=== PATIENT | female | born 1985 | race Two or more races ===

== ENCOUNTER 2017-05-03 12:26 | Emergency (ER) | payer OTHER ==
[2017-05-03] MEDS ORDERED: KETOROLAC 30 MG/ML 1 ML VIAL IM STA (13:14)
[2017-05-03] MEDS ORDERED: MORPHINE SULFATE 4 MG/ML SYRINGE IM STA (13:17)
--- NOTE | 2017-05-03 13:24 | ED ---
General Adult HPI - General Chief complaint: Extremity Problem,Nontraumatic Stated complaint: Infection in Foot Time Seen by Provider: 05/03/17 13:08 Source: patient Mode of arrival: ambulatory Limitations: no limitations - History of Present Illness Initial comments: Patient is a 31yo female presenting with right big toe pain. Onset 3 days ago. Patient has been trying Vicodin without relief. Patient states is worse with movement and walking. Better with rest and elevation. Patient denies prior history of gout, arthritis. She denies fever or chills. She does admit to alcohol use yesterday drinking beer. Patient denies trauma. She has been wearing sandals for the past several days. - Related Data Home Medications Medication Instructions Recorded Confirmed Cyclobenzaprine [Flexeril] 10 mg PO DAILY PRN 05/03/17 05/03/17 Gabapentin 800 mg PO DAILY 05/03/17 05/03/17 Previous Rx's Medication Instructions Recorded Ibuprofen [Motrin] 600 mg PO Q6HR PRN #30 tab 05/03/17 Allergies Allergy/AdvReac Type Severity Reaction Status Date / Time hydrocortisone Allergy Unknown Verified 05/03/17 13:31 Review of Systems ROS Statement: Those systems with pertinent positive or pertinent negative responses have been documented in the HPI. Constitutional: No fever and no chills. HENT: No congestion, no rhinorrhea and no sore throat. Eyes: No discharge and no redness. Respiratory: No cough and no shortness of breath. Cardiovascular: No chest pain and no palpitations. Gastrointestinal: No nausea, no vomiting, no abdominal pain and no diarrhea. Genitourinary: No dysuria and no hematuria. Musculoskeletal: No back pain and +arthralgias. Skin: No pallor and no rash. Neurological: No dizziness and No headaches. ROS Other: All systems not noted in ROS Statement are negative. 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 No distress. Head: Normocephalic and atraumatic. Eyes: Conjunctivae and EOM are normal. Right eye exhibits no discharge. Left eye exhibits no discharge. No scleral icterus. Neck: Normal range of motion. Neck supple. Cardiovascular: Normal rate and regular rhythm. No murmur heard. Pulmonary/Chest: Effort normal and breath sounds normal. No respiratory distress. No wheezes. Abdominal: Soft. No distension. There is no tenderness. There is no rebound and no guarding. Musculoskeletal: Exquisitely tender swollen right 1st MTP. Distal cap refill intact. Motor is intact but painful. Sensation intact. Neurological: Patient alert and oriented to person, place, and time. Skin: Skin is warm and dry. Not diaphoretic. Nursing notes and vitals reviewed. Limitations: no limitations Course Vital Signs 05/03/17 05/03/17 12:40 15:14 Temperature 98.0 F 97.8 F Pulse Rate 83 72 Respiratory 20 18 Rate Blood Pressure 112/61 95/59 O2 Sat by Pulse 98 100 Oximetry - Reevaluation(s) Reevaluation #1: 05/03/17 16:03 Patient with improvement of symptoms after medication. She is able to walk with much more relief now. Medical Decision Making - Medical Decision Making Patient's a 31-year-old female presenting with 3 days of right podagra. X-ray unremarkable. Patient had improvement in pain with morphine and Toradol. Prior to discharge, patient was resting comfortably in bed. Course of stay improved. Denies pain. Discussed physical exam and diagnostic tests with patient. Questions answered and patient is agreeable to discharge with close follow up with Primary Care Physician. Instructed to return to Emergency Department if symptoms worsen. Disposition Clinical Impression: Gout Disposition: HOME SELF-CARE Condition: Good Instructions: Gout (ED) Prescriptions: Ibuprofen [Motrin] 600 mg PO Q6HR PRN #30 tab PRN Reason: Severe Pain Referrals: Casper Ramirez MD [Primary Care Provider] - 1-2 days
--- NOTE | 2017-05-03 14:53 | XR ---
EXAMINATION TYPE: XR toes RT DATE OF EXAM: 05/03/2017 COMPARISON: NONE HISTORY: Pain swelling TECHNIQUE: 3 views right great toe FINDINGS: No acute fractures evident. Joint spaces preserved. Soft tissues are normal. IMPRESSION: 1. Normal three-view great toe
[2017-05-03 15:15] VITALS: RESP 18; TEMP 97.8
[2017-05-03 16:09] VITALS: BP 114/64; PULSE 87
== END 2017-05-03 16:09 | disposition home or self-care (01) ==
LOC: EC 12:26
DX: M10.9 Gout, unspecified (principal); F17.200 Nicotine dependence, unspecified, uncomplicated; Z79.899 Other long term (current) drug therapy; Z88.8 Allergy status to other drugs, medicaments and biological substances
CPT/HCPCS: 73660; 99283; 96372 ×2; J2270; J1885

== ENCOUNTER 2019-08-15 09:54 | Emergency (ER) | payer OTHER ==
[2019-08-15 10:20] VITALS: TEMP 98.2
[2019-08-15] MEDS ORDERED: IPRATROPIUM-ALBUTEROL 3 ML NEB INHALATION STA (10:37)
--- NOTE | 2019-08-15 10:57 | XR ---
EXAMINATION TYPE: XR chest 2V DATE OF EXAM: 08/15/2019 COMPARISON: NONE HISTORY: Cough and congestion TECHNIQUE: Frontal and lateral views of the chest are obtained. FINDINGS: There is no focal air space opacity, pleural effusion, or pneumothorax seen. There is mil d peribronchial cuffing on the lateral view. The cardiac silhouette size is within normal limits. T he osseous structures are intact. IMPRESSION: Mild peribronchial cuffing can be seen in reactive or infectious airway disease. Conside r bronchitis.
--- NOTE | 2019-08-15 11:12 | ED ---
URI HPI - General Chief Complaint: Upper Respiratory Infection Stated Complaint: congestion Time Seen by Provider: 08/15/19 10:32 Source: patient, RN notes reviewed Mode of arrival: ambulatory Limitations: no limitations - History of Present Illness Initial Comments: 33-year-old female presents emergency Department chief complaint of cough congestion. Patient states that she has been sick for last 2 weeks going on the third week of been sick. She states her cough is productive of phlegm she is a daily smoker denies any history of asthma COPD. Patient states it initially started in her sinuses. Patient denies any sick contacts denies any ear pain. She does have mild sore throat she's tried multiple [id number] cough and cold medications with no relief. - Related Data Home Medications Medication Instructions Recorded Confirmed Phenol [Chloraseptic] 2 - 3 spray MUCOUS MEM Q2H PRN 08/15/19 08/15/19 Previous Rx's Medication Instructions Recorded Amoxicillin/Potassium Clav 1 tab PO Q12HR #20 tab 08/15/19 [Augmentin 875-125 Tablet] predniSONE 50 mg PO DAILY #5 tab 08/15/19 Allergies Allergy/AdvReac Type Severity Reaction Status Date / Time hydrocortisone Allergy Swelling Verified 08/15/19 10:40 Review of Systems ROS Statement: Those systems with pertinent positive or pertinent negative responses have been documented in the HPI. ROS Other: All systems not noted in ROS Statement are negative. 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 Absent: scleral icterus, conjunctival injection, periorbital swelling ENT exam: Present: mucous membranes moist, TM's normal bilaterally, normal external ear exam. Absent: normal exam, normal oropharynx (Postnasal drainage) Neck exam: Present: normal inspection, full ROM. Absent: tenderness, meningismus, lymphadenopathy Respiratory exam: Present: wheezes (Mild), rhonchi. Absent: normal lung sounds bilaterally, respiratory distress, rales, stridor Cardiovascular Exam: Present: regular rate, normal rhythm, normal heart sounds. Absent: systolic murmur, diastolic murmur, rubs, gallop, clicks Course Vital Signs 08/15/19 08/15/19 10:16 10:48 Temperature 98.2 F Pulse Rate 66 Respiratory 20 20 Rate Blood Pressure 94/59 O2 Sat by Pulse 99 Oximetry - Reevaluation(s) Reevaluation #1: 08/15/19 11:08 I counseled the patient for smoking cessation for greater than 3 minutes Medical Decision Making - Medical Decision Making 33-year-old male present emergency department with chief complaint of cough congestion. Chest x-ray shows reactive airways versus infectious reactive airway, consider bronchitis. Patient will be treated accordingly. Patient was started on antibiotics for acute sinusitis, bronchitis. Patient will follow-up with her PCP and return for any worsening symptoms. Disposition Clinical Impression: Bronchitis, Sinusitis Disposition: HOME SELF-CARE Condition: Stable Instructions (If sedation given, give patient instructions): Acute Bronchitis (ED) Additional Instructions: Please return to the Emergency Department if symptoms worsen or any other concerns. Prescriptions: Amoxicillin/Potassium Clav [Augmentin 875-125 Tablet] 1 tab PO Q12HR #20 tab predniSONE 50 mg PO DAILY #5 tab Is patient prescribed a controlled substance at d/c from ED?: No Referrals: None,Stated [Primary Care Provider] - 1-2 days Time of Disposition: 11:11
[2019-08-15 11:55] VITALS: BP 109/74; PULSE 54; RESP 18
== END 2019-08-15 12:02 | disposition home or self-care (01) ==
LOC: EC 09:54
DX: J40 Bronchitis, not specified as acute or chronic (principal); J01.90 Acute sinusitis, unspecified; F17.200 Nicotine dependence, unspecified, uncomplicated; Z71.6 Tobacco abuse counseling; Z90.49 Acquired absence of other specified parts of digestive tract; Z88.8 Allergy status to other drugs, medicaments and biological substances
CPT/HCPCS: 71046; 94640; 99283; 99406

== ENCOUNTER → 2022-04-01 | Outpatient (CLI) | payer OTHER ==
--- NOTE | 2022-04-01 14:59 | US ---
EXAMINATION TYPE: US abdomen complete DATE OF EXAM: 04/01/2022 COMPARISON: NONE CLINICAL HISTORY: 36-year-old female R14.0 ABDOMINAL DISTENSION (GASEOUS). TECHNIQUE: Multiple sonographic images of the thyroid gland are obtained. FINDINGS: EXAM MEASUREMENTS: Liver Length: 15.1 cm CBD: .7 cm Spleen: 9.9 cm Right Kidney: 10.4 x 3.5 x 4.1 cm Left Kidney: 10.3 x 5.4 x 3.7 cm Pancreas: wnl Liver: wnl Gallbladder: Surgically absent CBD: 1.2 cm stone visualized in the mid bile duct. Spleen: wnl Right Kidney: wnl Left Kidney: wnl Upper IVC: wnl Abd Aorta: wnl IMPRESSION: 1. There appears to be a 1.2 cm shadowing stone projecting at the mid bile duct. The gallbladder is s urgically absent. Correlate with alkaline phosphatase and bilirubin levels. 2. Otherwise, no specific abnormality seen.
--- NOTE | 2022-04-01 15:01 | US ---
EXAMINATION TYPE: US pelvic complete DATE OF EXAM: 04/01/2022 COMPARISON: NONE CLINICAL HISTORY: 36-year-old female R14.0 ABDOMINAL DISTENSION (GASEOUS). TECHNIQUE: Transabdominal (TA). FINDINGS: EXAM MEASUREMENTS: Uterus: 8.8 x 3.7 x 5.0 cm Endometrial Stripe: .8 cm Right Ovary: 2.4 x 1.6 x 1.5 cm Left Ovary: 2.6 x 1.0 x 2.5 cm 1. Uterus: Anteverted. Large 1.7 cm cervical nabothian cyst. 2. Endometrium: wnl 3. Right Ovary: wnl 4. Left Ovary: wnl 5. Bilateral Adnexa: wnl 6. Posterior cul-de-sac: wnl IMPRESSION: Incidental 1.7 cm cervical nabothian cyst. Otherwise, unremarkable transabdominal sonographic examina tion of the pelvis.
== END | disposition home or self-care (01) ==
LOC: RADUSWWP 06:52
PROVIDERS: ATTEND Family Medicine
DX: N88.8 Other specified noninflammatory disorders of cervix uteri (principal); K80.50 Calculus of bile duct without cholangitis or cholecystitis without obstruction; Z90.49 Acquired absence of other specified parts of digestive tract
CPT/HCPCS: 76700; 76856

== ENCOUNTER → 2022-09-10 | Outpatient (CLI) | payer OTHER ==
--- NOTE | 2022-09-10 14:52 | US ---
EXAMINATION TYPE: US thyroid st tissue head/neck DATE OF EXAM: 09/10/2022 COMPARISON: NONE CLINICAL HISTORY: R10.9 Unspecified abdominal pain. abn labs GLAND SIZE: Right Lobe: 3.2 x 1.4 x 1.3 cm Overall Parenchyma: heterogenous Left Lobe: 3.6 x 1.2 x 1.2 cm Overall Parenchyma: heterogeneous Isthmus Thickness: 0.3 cm NODULES RIGHT: # of nodules measured on right: 0 LEFT: # of nodules measured on left: 0 ISTHMUS: # of nodules measured in the isthmus: 0 Bilateral neck scanned, no evidence of lymphadenopathy. IMPRESSION: 1. Normal thyroid ultrasound.
--- NOTE | 2022-09-10 15:37 | CT ---
EXAMINATION TYPE: CT abdomen pelvis w con DATE OF EXAM: 09/10/2022 HISTORY: Abdominal pain unspecified. History of cholecystectomy. Abnormal ultrasound. CT DLP: 549.7mGycm Automated Exposure Control for Dose Reduction was Utilized. CONTRAST: CT scan of the abdomen and pelvis is performed with IV Contrast, patient injected with 100 mL of Isov ue 300. COMPARISON: Ultrasound abdomen April 01, 2022. FINDINGS: LUNG BASES: No significant abnormality is appreciated. LIVER/GB: Visualized liver heterogeneously hypodense relative to spleen consistent with mild diffuse fatty infiltration. Multiple cholecystectomy clips are present more numerous than typical. Mild centr al intrahepatic biliary dilatation up to 12 mm correlates with recent ultrasound. Correlating with re cent ultrasound there is remnant 9 mm CBD stone coronal image 27 and axial image 21 confirmed. No int rahepatic biliary dilatation. PANCREAS: No significant abnormality is seen. SPLEEN: No significant abnormality is seen. ADRENALS: No significant abnormality is seen. KIDNEYS: No significant abnormality is seen. BOWEL: Oral contrast reaches level of the proximal transverse colon. Slightly suboptimal evaluation o f distal ball. No suspicious small or large bowel dilatation is seen. Small bowel into small bowel sm all focal intussusception noted coronal image 29 in the left mid abdomen. This is presumed transient. Contrast filled appendix from the cecum in the right pelvis appears within normal limits. UTERUS/ADNEXA: Anteverted uterus. 2 right-sided tubal ligation clips are identified. Prominent draini ng ovarian veins left greater than right, correlate to exclude pelvic congestion syndrome in the appr opriate clinical setting. LYMPH NODES: No greater than 1cm abdominal or pelvic lymph nodes are appreciated. OSSEOUS STRUCTURES: No significant abnormality is seen. OTHER: No significant additional abnormality is seen. IMPRESSION: As suspected on ultrasound there are cholecystectomy changes and confirmation of 9 mm CBD stone near the caroline hepatis in the proximal to mid CBD. Stable mild extrahepatic biliary dilatation . No new intrahepatic ductal dilatation.
== END | disposition home or self-care (01) ==
LOC: RADCTMAIN 13:06
PROVIDERS: ATTEND Family Medicine
DX: R10.9 Unspecified abdominal pain (principal); R74.8 Abnormal levels of other serum enzymes; R94.6 Abnormal results of thyroid function studies
CPT/HCPCS: 76536; 74177; Q9967 ×2

== ENCOUNTER 2022-09-26 11:24 | Day surgery (SDC) | payer OTHER ==
[~2022-09-26 11:24] MED LIST: LACTATED RINGERS 1,000 ML IV SCH
[2022-09-26] MEDS ORDERED: LEVOFLOXACIN 500MG-D5W PMX 500 MG in DEXTROSE/WATER 1 100ML.BAG IVPB STA (12:33)
[2022-09-26] MEDS ORDERED: INDOMETHACIN 50MG SUPPOSITORY RECTAL ONE (12:34)
[2022-09-26] MEDS ORDERED: LIDOCAINE 1% (10MG/ML) FOR IV START INTRADERMA ONE (14:05)
[2022-09-26 14:18] VITALS: RESP 16
[2022-09-26 14:33] LABS: ALT 21 U/L (4-34); AST 25 U/L (14-36); African American GFR (CKD) >90 (>60 ml/min/1.73 sqM); Albumin 4.8 g/dL (3.5-5.0); Alkaline Phosphatase 79 U/L (38-126); Anion Gap 7 mmol/L; Blood Urea Nitrogen 10 mg/dL (7-17); Calcium 9.2 mg/dL (8.4-10.2); Carbon Dioxide 22 mmol/L (22-30); Chloride 110 mmol/L (98-107); Glucose 86 mg/dL (74-99); Non-African American GFR(CKD) >90 (>60 ml/min/1.73 sqM); Prothrombin Time 10.7 sec (9.0-12.0); Sodium 139 mmol/L (137-145); Total Bilirubin 0.8 mg/dL (0.2-1.3); Total Protein 8.2 g/dL (6.3-8.2)
[2022-09-26 14:36] LABS: HGB 15.6 gm/dL (11.4-16.0); MCH 31.2 pg (25.0-35.0); MCHC 33.9 g/dL (31.0-37.0); MCV 91.8 fL (80.0-100.0); Mean Platelet Volume 9.7; Platelet Count 207 k/uL (150-450); RBC 5.01 m/uL (3.80-5.40); WBC 8.5 k/uL (3.8-10.6)
[2022-09-26 14:40] LABS: Potassium 4.4 mmol/L (3.5-5.1)
[2022-09-26] MEDS ORDERED: PROPOFOL 10 MG/ML 20 ML VIAL IV ONE (15:30)
[2022-09-26] MEDS ORDERED: KETAMINE 10 MG/ML 20 ML VIAL ONE (15:30)
[2022-09-26] MEDS ORDERED: LIDOCAINE 2% INJ 20 MG/ML (2 ML VIAL) ONE (15:30)
[2022-09-26] MEDS ORDERED: MIDAZOLAM 2 MG/2 ML VIAL ONE (15:30)
[2022-09-26] MEDS ORDERED: fentaNYL (PF) 50 MCG/ML 2 ML AMP ONE (15:30)
[2022-09-26] MEDS ORDERED: IOPAMIDOL-300 50ML BTL INJ ONE (16:08)
--- NOTE | 2022-09-26 16:16 | P.PCN ---
Date of Procedure: 09/26/22 Procedure(s) Performed: Brief history: Patient is a 37 year-old pleasant lady scheduled for an ERCP as part of evaluation of intermittent episodes of severe epigastric and right upper quadrant abdominal pain for the last several weeks. She had 3 episodes in the last 6 weeks, ascending colon last several hours. . The last one was last week. She had a CT of abdomen and pelvis done and was noted to have a 9 mm with mild intrahepatic biliary ductal dilation. She status post gallbladder surgery several years ago for symptomatically gallstones. Procedure performed: ERCP with biliary sphincterotomy and balloon sweep and 7- [place], 5 mm CBD stent placement Preoperative diagnoses: intermittent episodes of epigastric and right upper quadrant abdominal pain and CT of the abdomen showed 9 mmmillimeters CBD stone IV sedation per anesthesia: Procedure: After informed consent was obtained from the patient and after the risks benefits and complications including bleeding perforation and pancreatitis explained in detail the patient was brought into the endoscopy unit. The patient was placed in prone position and IV conscious sedation was administered by anesthesia under continuous monitoring. The Olympus side-viewing duodenoscope was then inserted into the mouth and esophagus intubated without an y difficulty. The scope was gradually advanced into the stomach and duodenum. The major papilla was identified without any difficulty Initially cannulation resulted resulted in presentation the pancreatic duct that appeared normal. Subsequent cannulation resulted in opacification of the common bile duct that appeared dilated in the proximal CBD measuring about 1.5 cm in diameter. There was some tapering of the distal 3 cm of common bile duct . Biliary sphincterotomy was performed after the catheter was exchanged over a guidewire and was extended to 1.2 cm in length. Following this an 8 mm balloon was passed over the guidewire into the proximal CBD and gently withdrawn and there was large amount of sludge with a small stone measuring about 3 mm was extracted. Following this 11 mm balloon was passed into the proximal CBD just proximal to the stomach and despite multiple attempts the stone could not be extracted because of the tapering of the distal common bile duct. At this time I decided to proceed with the CBD stent placement. A 7-[place], 5 cm pigtail stent was placed into the proximal CBD with good biliary drainage. Patient tolerated the procedure well. Impression: Normal-appearing pancreatic duct Dilated proximal common bile duct measuring 1.5 cm in diameter t with tapering of the distal common bile duct. A 1 cm stone in the proximal CBD.. Status post biliary sphincterotomy and extraction of large amount of sludge as well as 3 mm stone.. The proximal CBD stone could not be extracted because of tapering of the distal common bile duct. status post 7-[place], 5 cm pigtail stent placement in the proximal CBD. Recommendations: The findings of this examination were discussed with the patient as well as a family . She'll be placed on clear liquid diet. She'll be observed for 1 hour and she simply symptomatic she'll be discharged to an outpatient follow-up in one to 2 weeks. She will be referred to advanced endoscopy team at [facility] for CBD stone extraction on an outpatient basis.
[2022-09-26] MEDS ORDERED: ACETAMINOPHEN IV (For NPO) 1,000 MG/100 ML VIAL IVPB ONE (16:30)
[2022-09-26] MEDS ORDERED: LACTATED RINGERS 1,000 ML IV ONE (16:35)
[2022-09-26] MEDS ORDERED: IV FLUID CONTINUATION 1,000 ML IV ONE (16:39)
[2022-09-26 16:47] VITALS: TEMP 98
[2022-09-26] MEDS ORDERED: HYDROmorphone 0.5 MG/0.5 ML SYRINGE IVP ONE (16:54)
[2022-09-26 17:12] VITALS: BP 104/67; PULSE 58
--- NOTE | 2022-09-26 22:11 | FL ---
Fluoroscopy History: ERCP cbd stone 2min 45sec fluoro
== END 2022-09-26 14:45 | disposition home or self-care (01) ==
LOC: ORWHC2ENDO 11:24
PROVIDERS: ATTEND Internal Medicine Gastroenterology
DX: K80.50 Calculus of bile duct without cholangitis or cholecystitis without obstruction (principal); F17.210 Nicotine dependence, cigarettes, uncomplicated
CPT/HCPCS: 81025; 80053; 85027; 85610; 74330; 43277; 43264; 43262; J2250; J3010; J0131; J2704; J1170; Q9967; J2001; C2625; 43274